=== PATIENT | male | born 1990 | race Caucasian/White ===

== ENCOUNTER 2017-03-01 14:24 | Emergency (ER) | payer OTHER ==
[~2017-03-01] VITALS: Ht 188 cm; Wt 145.1 kg
[2017-03-01 14:49] VITALS: BP 166/93
--- NOTE | 2017-03-01 14:52 | NUR ---
26 M BIB SELF WITH C/O LACERATION TO LEFT INDEX FINGER X TODAY; PT STATES HE WAS AT WORK USING [employer]; BLEEDING CONTROLLED; CMS INTACT; UNKNOWN TETANUS .HX--DENIES. AAOX4 WITH EVEN AND STEADY GAIT; LUNGS CLEAR BL; PATIENT STATES PAIN OF 8/10 AT THIS TIME; PATIENT POSITIONED FOR COMFORT; HOB ELEVATED; BEDRAILS UP X2; BED DOWN. ER MD MADE AWARE OF PT STATUS.
[2017-03-01] MEDS ORDERED: LIDOCAINE 1% ***ER ONLY *** 10 MG/ML VIAL INJ ONE (14:55)
[2017-03-01] MEDS ORDERED: BACITRACIN OINT 500 UNITS/GM PKT TP ONE (14:55)
--- NOTE | 2017-03-01 15:10 | NUR ---
Patient being evaluated by DR KRAMER at bedside.
[2017-03-01 15:55] VITALS: BP 150/91
--- NOTE | 2017-03-01 15:55 | NUR ---
Patient discharged with BP 150/91; DENIES HEADACHE AT THIS TIME; MD MADE AWARE. Written and verbal after care instructions given and explained. Patient alert, oriented and verbalized understanding of instructions. Ambulatory with steady gait. All questions addressed prior to discharge. ID band removed. Patient advised to follow up with PMD. Rx of MOTRIN given. Patient educated on indication of medication including possible reaction and side effects. Opportunity to ask questions provided and answered.
== END 2017-03-01 15:55 | disposition home or self-care (01) ==
LOC: MED 14:24
DX: S61.211A Laceration without foreign body of left index finger without damage to nail, initial encounter (principal); F17.210 Nicotine dependence, cigarettes, uncomplicated; W27.8XXA Contact with other nonpowered hand tool, initial encounter; Y93.89 Activity, other specified; Y92.89 Other specified places as the place of occurrence of the external cause; Y99.8 Other external cause status
CPT/HCPCS: 12002; 90471; 90715; 99283; J2001

== ENCOUNTER 2017-03-03 13:00 | Emergency (ER) | payer OTHER ==
[~2017-03-03] VITALS: Ht 188 cm; Wt 145.1 kg
[2017-03-03 13:40] VITALS: BP 161/106
--- NOTE | 2017-03-03 13:42 | NUR ---
Patient ambulated to bed 04.
--- NOTE | 2017-03-03 13:45 | NUR ---
PT PRESENTS TO ER FOR RECHECK LEFT INDEX FINGER SUTURES. DENIES N/V/D; SKIN IS PINK/WARM/DRY; AAOX4 WITH EVEN AND STEADY GAIT; LUNGS CLEAR BL; HR EVEN AND REGULAR; PT DENIES ANY FEVER, CP, SOB, OR COUGH AT THIS TIME; PATIENT STATES PAIN OF 4/10 AT THIS TIME; VSS; PATIENT POSITIONED FOR COMFORT; HOB ELEVATED; BEDRAILS UP X2; BED DOWN. ER MD MADE AWARE OF PT STATUS.
--- NOTE | 2017-03-03 13:50 | NUR ---
DR BOWER AT BEDSIDE
[2017-03-03 14:08] VITALS: BP 161/106
--- NOTE | 2017-03-03 14:08 | NUR ---
Patient discharged with v/s stable. Written and verbal after care instructions given and explained. Patient verbalized understanding. Ambulatory with steady gait. All questions addressed prior to discharge. Advised to follow up with PMD.
== END 2017-03-03 14:08 | disposition home or self-care (01) ==
LOC: MED 13:00
DX: S61.211D Laceration without foreign body of left index finger without damage to nail, subsequent encounter (principal); X58.XXXD Exposure to other specified factors, subsequent encounter
CPT/HCPCS: 99281

== ENCOUNTER 2017-03-09 13:03 | Emergency (ER) | payer OTHER ==
[~2017-03-09] VITALS: Ht 188 cm; Wt 142.9 kg
[2017-03-09 13:08] VITALS: BP 182/122
--- NOTE | 2017-03-09 13:31 | NUR ---
Patient to bed 06.
--- NOTE | 2017-03-09 13:32 | NUR ---
PT PRESENTS TO ER FOR SUTURE REMOVAL ON LEFT INDEX FINGER.WOUND C/D/I. AAOX4 WITH EVEN AND STEADY GAIT; LUNGS CLEAR BL; HR EVEN AND REGULAR; PT PATIENT STATES PAIN OF 0/10 AT THIS TIME; VSS; PATIENT POSITIONED FOR COMFORT; HOB ELEVATED; BEDRAILS UP X2; BED DOWN. ER MD MADE AWARE OF PT STATUS.
[2017-03-09 13:58] VITALS: BP 157/86
== END 2017-03-09 13:45 | disposition home or self-care (01) ==
LOC: MED 13:03
DX: S61.211D Laceration without foreign body of left index finger without damage to nail, subsequent encounter (principal); W27.8XXD Contact with other nonpowered hand tool, subsequent encounter
CPT/HCPCS: 99283